=== PATIENT | female | born 1975 | race Caucasian/White ===

== ENCOUNTER → 2018-04-13 06:37 | Outpatient (CLI) | payer OTHER, SELFPAY ==
--- NOTE | 2018-04-13 06:39 | DI.MRI.S_ITS ---
PROCEDURE: MR LUMBAR SPINE WO CON INDICATIONS: 43 year-old woman with left side low back pain. TECHNIQUE: Noncontrast sagittal T1 spin echo and T2 fast echo, sagittal STIR, axial T1 and T2 fast spin echo through the lumbar spine. In cases with scoliosis, additional coronal T2 fast spin echo may be performed. COMPARISON: [facility], , L-SPINE 2-3 VIEWS, 11/25/2009, 9:36. [facility], , PELVIS 1 OR 2 VIEWS, 11/25/2009, 9:36. [facility], , L-SPINE 2-3 VIEWS, 08/19/2017, 15:20. FINDINGS: Image quality: Excellent. Alignment and Curvature: There is normal bony alignment. Bone Marrow: Marrow is of normal overall signal. No acute vertebral body compression fractures. Spinal Cord: Conus medullaris terminates at the L1 level. Visualized cord demonstrates normal signal and size. Paraspinous Soft Tissues: No paravertebral masses. L1-L2: Normal appearance. L2-L3: Preserved disc height. Mild disc desiccation. There is minimal posterior disc bulge. The central canal is patent. No foraminal stenosis. L3-L4: Preserved disc height. Mild disc desiccation. There is posterior disc bulge and small posterior central annular tear. The central canal is patent. No foraminal stenosis. L4-L5: Preserved disc height. Moderate disc desiccation. There is posterior disc bulge and posterior central annular tear. Moderate bilateral facet arthropathy. The central canal is narrowed. No foraminal stenosis. L5-S1: Severe loss of disc height and disc desiccation. There is posterior disc bulge and disc osteophyte complex. Mild bilateral facet arthropathy. The central canal is mildly narrowed. [id number]-[id number] bilateral foraminal stenosis. IMPRESSION: 1. Multilevel degenerative disc disease and facet arthropathy in lumbar spine as described. 2. Mild central canal stenosis at L5-S1. 3. Wevb-rv-hmatyqda bilateral foraminal stenosis at L5-S1. Dictated by: Kayla Melissa M.D. on 04/13/2018 at 8:00 Approved by: Kayla Melissa M.D. on 04/13/2018 at 10:13
== END ==
PROVIDERS: Family Provider Family Medicine; PCP Family Medicine; Referring Provider Family Medicine; Visit Provider Family Medicine
DX: M54.5 Low back pain (principal); M51.36 Other intervertebral disc degeneration, lumbar region; M47.816 Spondylosis without myelopathy or radiculopathy, lumbar region; M48.07 Spinal stenosis, lumbosacral region
CPT/HCPCS: 72148

== ENCOUNTER → 2018-04-24 15:19 | Outpatient (CLI) | payer OTHER, SELFPAY ==
--- NOTE | 2018-04-24 | DI.MG.S_ITS ---
BILATERAL DIGITAL SCREENING MAMMOGRAM 3D/2D WITH CAD: 04/24/2018 CLINICAL: Routine screening. Family history of breast cancer. Comparison is made to exam dated: [facility] [place]. The tissue of both breasts is heterogeneously dense. This may lower the sensitivity of mammography. Current study was also evaluated with a Computer Aided Detection (CAD) system. No significant masses, calcifications, or other findings are seen in either breast. There has been no significant interval change. IMPRESSION: NEGATIVE There is no mammographic evidence of malignancy. A 1 year screening mammogram is recommended. This exam was interpreted at Station ID: [id number]. NOTE: For mammograms, a report in lay terms will be sent to the patient. Approximately 15% of breast malignancies will not be visualized mammographically. In the management of a palpable breast mass, a negative mammogram must not discourage biopsy of a clinically suspicious lesion. Electronically Signed By: Lashae boyle/agustin:04/24/2018 15:52:04 letter sent: Normal Exam ACR BI-RADS Category 1: Negative 3341F
== END ==
PROVIDERS: Family Provider Family Medicine; PCP Family Medicine; Visit Provider Family Medicine
DX: Z12.31 Encounter for screening mammogram for malignant neoplasm of breast (principal); Z80.3 Family history of malignant neoplasm of breast
CPT/HCPCS: 77063; 77067

== ENCOUNTER → 2018-07-29 15:51 | Outpatient (CLI) | payer OTHER, SELFPAY ==
[2018-07-29 18:03] LABS: Thyroid Stimulating Hormone < 0.02 uIU/mL (0.47-4.68)
== END ==
PROVIDERS: PCP Family Medicine; Visit Provider Family Medicine
DX: E03.9 Hypothyroidism, unspecified (principal)
CPT/HCPCS: 36415; 84443

== ENCOUNTER → 2018-11-19 14:59 | Outpatient (CLI) | payer OTHER, SELFPAY ==
[2018-11-19 17:01] LABS: Thyroid Stimulating Hormone 0.07 uIU/mL (0.47-4.68)
== END ==
PROVIDERS: Family Provider Family Medicine; PCP Family Medicine; Visit Provider Family Medicine
DX: E03.9 Hypothyroidism, unspecified (principal)
CPT/HCPCS: 36415; 84443

== ENCOUNTER → 2019-04-28 10:19 | Outpatient (CLI) | payer OTHER, SELFPAY ==
[2019-04-28 12:25] LABS: TSH w/ Reflex to FT4 7.97 uIU/mL (0.47-4.68)
[2019-04-28 12:53] LABS: Free T4, Direct Thyroxine 0.98 ng/dL (0.78-2.19)
== END ==
PROVIDERS: PCP Family Medicine; Visit Provider Family Medicine
DX: E03.9 Hypothyroidism, unspecified (principal)
CPT/HCPCS: 36415; 84439; 84443

== ENCOUNTER → 2019-06-02 10:09 | Outpatient (CLI) | payer OTHER, SELFPAY ==
--- NOTE | 2019-06-02 | DI.US.S_ITS ---
ULTRASOUND OF LEFT BREAST: 06/02/2019 CLINICAL: Focal left breast pain. Comparison is made to exams dated: 06/02/2019 mammogram, 04/24/2018 mammogram, and 03/28/2017 mammogram - [facility]. Real-time ultrasound of the left breast was performed. Raymond scale images of the real-time examination were reviewed. No significant abnormalities were seen sonographically in the left breast. IMPRESSION: BENIGN There is no sonographic evidence of malignancy. There is no abnormality seen in the left breast to correspond with the area of clinical concern, palpable abnormality, and pain, however, recommend clinical followup for continued symptomatology. A 1 year screening mammogram is recommended. This exam was interpreted at Station ID: [id number]. Electronically Signed By: Robbin Busch M.D. aty/:06/02/2019 11:57:29 letter sent: Normal Exam Ultrasound BI-RADS: 2 Benign
--- NOTE | 2019-06-02 10:10 | DI.US.S_ITS ---
ULTRASOUND OF RIGHT BREAST: 06/02/2019 CLINICAL: Palpable right breast lump. Comparison is made to exams dated: 06/02/2019 mammogram, 04/24/2018 mammogram, and 03/28/2017 mammogram - [facility]. Color flow and real-time ultrasound of the right breast were performed. Raymond scale images of the real-time examination were reviewed. There is a 0.4 cm x 0.3 cm x 0.4 cm oval cyst in the right breast at 3 o'clock middle depth 5 cm from the nipple. This oval cyst is anechoic with posterior acoustic enhancement. This correlates to the reported area of pain and with area of clinical concern. Color flow imaging demonstrates that there is no vascularity present. IMPRESSION: BENIGN There is no sonographic evidence of malignancy. The 0.4 cm x 0.3 cm x 0.4 cm oval cyst in the right breast is consistent with a simple cyst and is benign. A 1 year screening mammogram is recommended. Recommend clinical follow up for persistent symptoms. This exam was interpreted at Station ID: [id number]. Electronically Signed By: Robbin chinchilla/:06/02/2019 11:59:47 letter sent: Normal Exam Ultrasound BI-RADS: 2 Benign
--- NOTE | 2019-06-02 10:10 | DI.MG.S_ITS ---
BILATERAL DIGITAL DIAGNOSTIC MAMMOGRAM 3D/2D: 06/02/2019 CLINICAL: Right breast pain and lump. Left breast pain. Comparison is made to exams dated: 04/24/2018 mammogram and 03/28/2017 mammogram - [facility]. The tissue of both breasts is heterogeneously dense. This may lower the sensitivity of mammography. No significant masses, calcifications, or other findings are seen in either breast. IMPRESSION: INCOMPLETE: NEEDS ADDITIONAL IMAGING EVALUATION There is no abnormality seen in the right breast to correspond with the area of clinical concern and pain indicated by square marker at 3 o'clock in the middle depth, however, ultrasound is recommended. There is no abnormality seen in the left breast to correspond with the area of clinical concern and pain indicated by square marker at 9 o'clock in the posterior depth, however, ultrasound is recommended. The recommended breast ultrasound is scheduled to immediately follow this examination. This exam was interpreted at Station ID: [id number]. NOTE: For mammograms, a report in lay terms will be sent to the patient. Approximately 15% of breast malignancies will not be visualized mammographically. In the management of a palpable breast mass, a negative mammogram must not discourage biopsy of a clinically suspicious lesion. Electronically Signed By: Robbin Busch M.D. aty/:06/02/2019 11:01:17 ACR BI-RADS Category 0: Incomplete [id number]
== END ==
PROVIDERS: PCP Family Medicine; Visit Provider Family Medicine
DX: R92.8 Other abnormal and inconclusive findings on diagnostic imaging of breast (principal); N64.4 Mastodynia; N60.01 Solitary cyst of right breast
CPT/HCPCS: 76642; 77066; G0279

== ENCOUNTER → 2019-08-09 09:19 | Outpatient (CLI) | payer OTHER, SELFPAY ==
[2019-08-09 11:05] LABS: Thyroid Stimulating Hormone 3.17 uIU/mL (0.47-4.68)
== END ==
PROVIDERS: PCP Family Medicine; Visit Provider Family Medicine
DX: E03.9 Hypothyroidism, unspecified (principal)
CPT/HCPCS: 36415; 84443

== ENCOUNTER 2019-10-14 15:32 | Outpatient (CLI) | payer OTHER, SELFPAY ==
[2019-10-14] VITALS (8 sets, daily range): BP systolic 106–122; BP diastolic 58–81; PULSE 71–76; RESP 16–18; TEMP 36.5; O2SAT 98–100
--- NOTE | 2019-10-14 15:33 | DI.RAD.S_ITS ---
PROCEDURE: PAIN L/SI FACET INJ/BLK 1STL INDICATIONS: INTERVERTEBRAL DISC DISPLACEMENT FINDINGS: Fluoroscopic spot filming was performed to verify placement of spinal needles at the L4-L5 and L5-S1 level(s), as labeled on the films. Appropriate location(s) of the needle tip(s) was confirmed by injection of iodinated contrast. IMPRESSION: Fluoroscopy for pain management. Dictated by: Kayla Melissa M.D. on 10/14/2019 at 18:57 Approved by: Kayla Melissa M.D. on 10/14/2019 at 18:57
[2019-10-14] MEDS: BETAMETHASONE 30 MG/5 ML MDV 12 MG INJ (16:17)
[2019-10-14] MEDS: IOPAMIDOL 15 ML VIAL 3 ML INJ (16:17)
[2019-10-14] MEDS: LIDOCAINE 1% 20 ML 5 ML INJ (16:17)
[2019-10-14] MEDS: MIDAZOLAM 5 MG/5 ML VIAL IV (16:17)
[2019-10-14] MEDS: BUPIVACAINE 0.5% (PF) VIAL 2 ML INJ (16:17)
--- NOTE | 2019-10-14 16:20 | PC.NURSE ---
ASSISTING PT OFF TABLE AND TRANSPORTING TO POST PROC AREA IN STABLE CONDITION. PASSING RN CARE OF PT OFF TO NATALIE Cheung RN.
--- NOTE | 2019-10-14 16:32 | PC.NURSE ---
1629: Received patient post procedure via WC with Melvina KILLIAN. Awake, alert, and calm. Up out of WC to chair with Stand by assist. VSS upon arrival. Pasquale at side
--- NOTE | 2019-10-22 13:30 | P.PCN_ITS ---
Procedures Date/Time Date of procedure: 10/14/19 Time of procedure: 13:31 General Procedure description: PREOP DIAGNOSIS 1. FACET ARTHROPATHY 2. AXIAL LBP 3. MULTILEVEL DDD POST OP DIAGNOSIS 1. FACET ARTHROPATHY 2. AXIAL LBP 3. MULTILEVEL DDD PROCEDURES 1. FLUORSCOPICALLY GUIDED CONTRAST CONTROLLED FACET JOINT INJECTIONS BILATERAL L4/5, L5/S1 PHYSICIAN: Jones Smart, DO INDICATIONS Yarely is referred by Dr. Yao for treatment of Axial LBP FINDINGS Multilevel Facet Arthropathy with Clinically significant axial LBP DESCRIPTION OF PROCEDURE Fluoroscopically guided, contrast-controlled bilateral L4/5, L5/S1 facet joint injections. Following review of allergy and review of potential side effects and complications, including, but not necessarily limited to, infection, allergic reaction, local tissue breakdown, stroke, temporary or permanent nerve injury, paralysis, and possible , the patient indicated that the patient understood and agreed to proceed. An informed consent document was signed by the patient, witnessed by a nurse, and placed in the patient's chart. Additionally, other treatment options including medications, modalities, and physical therapy were reviewed with the patient. After review of previous anaesthesic history and IV conscious sedation the patient was deemed safe to proceed with todays procedure with IV conscious sedation as ASA class II designation. Safety time-out was performed to confirm patient ID, procedure to be performed and site of procedure. IV sedation was accomplished with a combination of 2mg of Versed and 50mcg of Fentanyl was administered by the RN after DO order, titrated to patient comfort during the course of the procedure while the patient remained responsive to all verbal commands In the prone position, following sterile prep and drape of the lumbar region, the posterior aspect of the L4/5, L5/S1 facet joints were identified fluoroscopically. The skin was anesthetized via a 25-gauge 1.5-inch needle with 1% lidocaine solution into the corresponding facet joints. At this point, a 22- gauge 3.5-inch spinal needle was atraumatically introduced and advanced under fluoroscopic guidance into the corresponding facet joints. Following negative aspiration, injections of approximately 0.2cc of Isovue 200 confirmed interarticular placement without vascular uptake. The identical procedure was then performed at the L4/5, L5/S1 facet joints on the left. Radiological data, including multiple fluoroscopic views of the lumbosacral spine, reveal a spinal needle at the L4/5, L5/S1 facet joints bilaterally. Subsequent views show flow of contrast material both superiorly and inferiorly within the joint space without vascular or intrathecal uptake. At this point, a total of 0.5cc including a mixture of 0.25cc Marcaine and 0.25cc betamethasone was injected without complication into each of the corresponding facet joints. The patient tolerated the procedure well without signs or symptoms of complications prior to transfer to the recovery area continued monitoring without incident. The patient was then transferred to the recovery area where they were observed for an appropriate period of time after the injection. The patient reported a VAS score of 7 prior to the procedure and a post- procedure VAS of 2. Total Fluoroscopy Time: seconds Total Conscious Sedation Time: 24min POST OP INSTRUCTIONS The patient was provided a Pain Log to continue to record their response to the target-specific procedure prior to follow-up visit with their referring physician. Additionally, specific post-injection care instructions and a contact number to our office were provided if concerns arise regarding possible complications associated with the procedure are suspected. Jones Smart, Complications: none
== END 2019-10-14 16:49 | disposition home or self-care (01) ==
LOC: RAD 15:33
PROVIDERS: PCP Family Medicine; Referring Provider Physical Medicine & Rehabilitation; Visit Provider Physical Medicine & Rehabilitation
DX: M47.816 Spondylosis without myelopathy or radiculopathy, lumbar region (principal); M47.817 Spondylosis without myelopathy or radiculopathy, lumbosacral region; M54.5 Low back pain; M51.36 Other intervertebral disc degeneration, lumbar region; M51.37 Other intervertebral disc degeneration, lumbosacral region
CPT/HCPCS: 64493; 64494; 99152; J0702; J2250; J3010

== ENCOUNTER → 2020-01-10 16:04 | Outpatient (CLI) | payer OTHER, SELFPAY ==
--- NOTE | 2020-01-10 16:05 | DI.RAD.S_ITS ---
PROCEDURE: XR SHOULDER LT MIN 2V INDICATIONS: LEFT SHOULDER PAIN TECHNIQUE: 3 views of the shoulder were acquired. COMPARISON: [facility], , CHEST 2 VIEW, 12/11/2012, 6:27. FINDINGS: Bones: No fractures or dislocations. No suspicious bony lesions. Visualized ribs appear intact. Soft tissues: No suspicious soft tissue calcifications. The visualized lung demonstrates an unremarkable appearance. IMPRESSION: No significant plain film abnormality is seen. Dictated by: Ben Gerber M.D. on 01/10/2020 at 15:49 Approved by: Ben Gerber M.D. on 01/10/2020 at 15:50
== END ==
PROVIDERS: PCP Family Medicine; Referring Provider Family Medicine; Visit Provider Family Medicine
DX: M25.512 Pain in left shoulder (principal)
CPT/HCPCS: 73030

== ENCOUNTER → 2020-03-09 15:41 | Outpatient (CLI) | payer OTHER, SELFPAY ==
--- NOTE | 2020-03-09 15:42 | DI.RAD.S_ITS ---
PROCEDURE: XR HAND LT MIN 3V INDICATIONS: left middle finger pain TECHNIQUE: 3 views of the hand(s) acquired. COMPARISON: None. FINDINGS: Bones: No fractures or dislocations. Carpal bones are normally aligned. No suspicious bony lesions. Soft tissues: No suspicious soft tissue calcifications. IMPRESSION: Left hand without acute radiographic abnormalities. Dictated by: Robbin Busch M.D. on 03/09/2020 at 16:14 Approved by: Robbin Busch M.D. on 03/09/2020 at 16:15
== END ==
PROVIDERS: PCP Family Medicine; Referring Provider Physician Assistant; Visit Provider Physician Assistant
DX: M79.645 Pain in left finger(s) (principal)
CPT/HCPCS: 73130

== ENCOUNTER → 2020-04-12 11:24 | Outpatient (CLI) | payer OTHER, SELFPAY ==
[2020-04-12 12:20] LABS: Add Manual Diff / Slide Review NO; Basophils Absolute Auto 0 /uL (0-100); Basophils Percent Auto 0.5 % (0-2); Eosinophils Absolute Auto 100 /uL (0-450); Eosinophils Percent Auto 1.5 % (2-4); Hematocrit 38.9 % (36-46); Lymphocytes Absolute Auto 1400 /uL (1100-4500); Lymphocytes Percent Auto 19.4 % (25-40); Mean Corpuscular HGB Conc 33.4 % (30-36); Mean Corpuscular Hemoglobin 27.9 PG (26-34); Mean Corpuscular Volume 83.5 fL (80-100); Monocytes Absolute Auto 400 /uL (0-900); Monocytes Percent Auto 5.9 % (3-14); Neutrophils Absolute Auto 5200 /uL (1500-7000); Neutrophils Percent Auto 72.7 % (50-75); Platelet Count 233 X10^3/uL (150-400); Red Blood Cell Count 4.66 X10^6/uL (4.0-5.2); Red Cell Distribution Width 14.7 % (11.6-14.8); White Blood Cell Count 7.2 X10^3/uL (4.5-11.0)
[2020-04-12 12:46] LABS: Alanine Aminotransferase 15 IU/L (<35); Albumin 4.6 g/dL (3.5-5.0); Albumin Globulin Ratio 1.4 (1.0-2.8); Alkaline Phosphatase 83 U/L (38-126); Amylase 74 U/L (30-110); Aspartate Aminotransferase 19 IU/L (14-36); Bilirubin Total 0.5 mg/dL (0.2-1.3); Blood Urea Nitrogen 10 mg/dL (7-17); Calcium 10.8 mg/dL (8.4-10.2); Carbon Dioxide 28 mmol/L (22-32); Chloride 102 mmol/L (98-107); Cholesterol 206 mg/dL (140-199); Estimated Glomerular Filt Rate > 60.0 mL/min (>60); Globulin 3.4 g/dL (1.7-4.1); Glucose 114 mg/dL (70-100); HDL Cholesterol 73 mg/dL (40-60); HEMOLYSIS < 15 (0-50); LDL Cholesterol Calculated 100 mg/dL (<100); Lipase 58 U/L (23-300); Potassium 4.6 mmol/L (3.4-5.1); Sodium 137 mmol/L (137-145); Triglycerides 165 mg/dL (35-150)
[2020-04-15 15:08] LABS: H. Pylori Antigen Stool Negative (Negative)
[2020-04-17 17:45] LABS: Calprotectin, Stool < 16 ug/g (0-120)
== END ==
PROVIDERS: PCP Family Medicine; Referring Provider Family Medicine; Visit Provider Family Medicine
DX: R10.11 Right upper quadrant pain (principal); R10.13 Epigastric pain; R11.2 Nausea with vomiting, unspecified; R19.7 Diarrhea, unspecified; R10.9 Unspecified abdominal pain; R11.0 Nausea
CPT/HCPCS: 36415; 80053; 80061; 82150; 83690; 83993; 85025; 87338

== ENCOUNTER → 2020-04-14 08:06 | Outpatient (CLI) | payer OTHER, SELFPAY ==
--- NOTE | 2020-04-14 08:07 | DI.US.S_ITS ---
PROCEDURE: US ABDOMEN COMPLETE INDICATIONS: abdominal pain - evaluate gall bladder and pancreas TECHNIQUE: Real-time scanning was performed of the abdominal and retroperitoneal organs, with image documentation. COMPARISON: [facility], US, ABDOMEN COMPLETE, 11/01/2014, 7:37. FINDINGS: Liver: Liver is normal in size and homogeneous in echotexture. Gallbladder: No findings of gallstones or sludge are seen. The gallbladder wall is not thickened, measuring 3 mm or less. No specific pericholecystic fluid is seen. The sonographic Silveira sign is negative. Biliary ducts: Intrahepatic bile ducts are mildly prominent. Extrahepatic bile duct caliber measures 3 mm. Normal is 6-7 mm or less in diameter, or 10 mm or less post-cholecystectomy. Pancreas: Not well seen, obscured by overlying bowel gas. Spleen: Spleen is normal in size and demonstrates a heterogeneous echotexture. No focal splenic lesions are seen. Kidneys: Kidneys are normal in size and echotexture. Right kidney measures 11.3 cm long; left kidney measures 11 1 cm long. No hydronephrosis or nephrolithiasis. No solid masses. Aorta: Visualized aorta is normal in caliber at less than 3 cm. Iliacs: Proximal common iliac arteries are normal in caliber at less than 2.5 cm. IVC: Intrahepatic inferior vena cava is patent. Miscellaneous: No free abdominal fluid. This study is limited by body habitus. Study is further limited bowel gas. IMPRESSION: The gallbladder demonstrates a normal sonographic appearance. No qi biliary dilatation is seen. The pancreas not well seen, secondary bowel gas. Dictated by: Ben Gerber M.D. on 04/14/2020 at 8:17 Approved by: Ben Gerber M.D. on 04/14/2020 at 8:19
== END ==
PROVIDERS: PCP Family Medicine; Referring Provider Family Medicine; Visit Provider Family Medicine
DX: R10.11 Right upper quadrant pain (principal); R10.13 Epigastric pain; R11.2 Nausea with vomiting, unspecified; R19.7 Diarrhea, unspecified
CPT/HCPCS: 76700

== ENCOUNTER → 2020-07-19 17:31 | Outpatient (CLI) | payer OTHER, SELFPAY ==
--- NOTE | 2020-07-19 17:32 | DI.MG.S_ITS ---
BILATERAL DIGITAL SCREENING MAMMOGRAM 3D/2D WITH CAD: 07/19/2020 CLINICAL: Routine screening. Family history of breast cancer. Comparison is made to exams dated: 06/02/2019 mammogram, 04/24/2018 mammogram, and 03/28/2017 mammogram - [facility]. The tissue of both breasts is heterogeneously dense. This may lower the sensitivity of mammography. Current study was also evaluated with a Computer Aided Detection (CAD) system. No significant masses, calcifications, or other findings are seen in either breast. There has been no significant interval change. IMPRESSION: NEGATIVE There is no mammographic evidence of malignancy. A 1 year screening mammogram is recommended. This exam was interpreted at Station ID: [id number]. NOTE: For mammograms, a report in lay terms will be sent to the patient. Approximately 15% of breast malignancies will not be visualized mammographically. In the management of a palpable breast mass, a negative mammogram must not discourage biopsy of a clinically suspicious lesion. Electronically Signed By: Lashae boyle/agustin:07/20/2020 08:32:55 letter sent: Normal Exam ACR BI-RADS Category 1: Negative 3341F
== END ==
PROVIDERS: PCP Family Medicine; Referring Provider Family Medicine; Visit Provider Family Medicine
DX: Z12.31 Encounter for screening mammogram for malignant neoplasm of breast (principal); Z80.3 Family history of malignant neoplasm of breast
CPT/HCPCS: 77063; 77067

== ENCOUNTER → 2020-08-17 07:32 | Outpatient (CLI) | payer OTHER, SELFPAY ==
--- NOTE | 2020-08-17 | DI.NM.S_ITS ---
PROCEDURE: NM HIDA WITH CCK PHARMACEUTICAL: 5.2 mCi Tc-99m mebrofenin IV; 2.0 mcg CCK IV. INDICATIONS: Epigastric pain TECHNIQUE: Following intravenous administration of Tc-99m mebrofenin, sequential anterior abdominal images were obtained. To evaluate the contractile response of the gallbladder in response to Cholecystokinin (CCK), sincalide (0.02 ?g/kg) was administered by slow intravenous infusion approximately 60 minutes after the administration of the radiopharmaceutical. Sequential imaging was continued for 30 minutes after the start of CCK infusion. Gallbladder ejection fraction was calculated. COMPARISON: [facility], , US ABDOMEN COMPLETE, 04/14/2020, 8:16. FINDINGS: Biliary scan: There is normal tracer uptake and excretion by the liver. There is normal visualization of the intrahepatic ducts, common bile duct, and gallbladder. There is normal tracer transit into the duodenum. CCK stimulation: There is normal contractile response of the gallbladder to CCK infusion. The calculated gallbladder ejection fraction is 95%; normal values are above 35%. IMPRESSION: 1. Normal filling of gallbladder. No evidence for acute cholecystitis. 2. Normal contractile response of gallbladder to CCK stimulation. Dictated by: Kayla Melissa M.D. on 08/17/2020 at 9:38 Approved by: Kayla Melissa M.D. on 08/17/2020 at 9:39
== END ==
PROVIDERS: PCP Family Medicine; Referring Provider Family Medicine; Visit Provider Internal Medicine Gastroenterology
DX: R10.13 Epigastric pain (principal)
CPT/HCPCS: 78227; A9537; J2805

== ENCOUNTER 2020-09-06 19:18 | Emergency (ER) | payer OTHER, SELFPAY ==
[2020-09-06] VITALS (9 sets, daily range): BP systolic 118–133; BP diastolic 61–87; PULSE 80–93; RESP 18–20; TEMP 37; O2SAT 96–99
--- NOTE | 2020-09-06 19:27 | DI.RAD.S_ITS ---
PROCEDURE: XR CHEST 1V INDICATIONS: chest pain TECHNIQUE: One view of the chest was acquired. COMPARISON: [facility], , CHEST 2 VIEW, 12/11/2012, 6:27. FINDINGS: Surgical changes and devices: None. Lungs and pleura: Right basilar opacity may be infiltrate or atelectasis. No pleural effusions or pneumothorax. Mediastinum: Mediastinal contours appear normal. Heart size is normal. Bones and chest wall: No suspicious bony lesions. Overlying soft tissues appear unremarkable. IMPRESSION: Right basilar pneumonia versus atelectasis. Dictated by: Kayla Melissa M.D. on 09/06/2020 at 19:54 Approved by: Kayla Melissa M.D. on 09/06/2020 at 19:55
[2020-09-06 19:55] LABS: Add Manual Diff / Slide Review NO; Basophils Absolute Auto 100 /uL (0-100); Basophils Percent Auto 1.3 % (0-2); Eosinophils Absolute Auto 200 /uL (0-450); Hemoglobin 12.1 g/dL (12.0-16.0); Lymphocytes Absolute Auto 1700 /uL (1100-4500); Lymphocytes Percent Auto 22.2 % (25-40); Mean Corpuscular HGB Conc 33.6 % (30-36); Mean Corpuscular Hemoglobin 27.4 PG (26-34); Mean Corpuscular Volume 81.5 fL (80-100); Monocytes Absolute Auto 500 /uL (0-900); Monocytes Percent Auto 6.5 % (3-14); Neutrophils Absolute Auto 5100 /uL (1500-7000); Platelet Count 208 X10^3/uL (150-400); Red Blood Cell Count 4.42 X10^6/uL (4.0-5.2); Red Cell Distribution Width 14.8 % (11.6-14.8); White Blood Cell Count 7.7 X10^3/uL (4.5-11.0)
[2020-09-06 20:03] LABS: INR 0.9 (0.9-1.3); Prothrombin Time 10.6 SECONDS (10.1-12.7)
[2020-09-06 20:06] LABS: PTT Partial Thromboplastin Tim 29 SECONDS (26.4-36.2)
[2020-09-06 20:08] LABS: Alanine Aminotransferase 17 IU/L (<35); Albumin 4.2 g/dL (3.5-5.0); Albumin Globulin Ratio 1.3 (1.0-2.8); Alkaline Phosphatase 89 U/L (38-126); Aspartate Aminotransferase 22 IU/L (14-36); BUN Creatinine Ratio 16.5 (6-22); Bilirubin Total 0.1 mg/dL (0.2-1.3); Blood Urea Nitrogen 13 mg/dL (7-17); Calcium 9.9 mg/dL (8.4-10.2); Carbon Dioxide 29 mmol/L (22-32); Chloride 107 mmol/L (98-107); Creatine Kinase 49 U/L (30-135); Estimated Glomerular Filt Rate > 60.0 mL/min (>60); Globulin 3.2 g/dL (1.7-4.1); Glucose 100 mg/dL (70-100); HEMOLYSIS < 15 (0-50); Lipase 72 U/L (23-300); Sodium 139 mmol/L (137-145); Total Protein 7.4 g/dL (6.3-8.2)
[2020-09-06 20:19] LABS: Troponin I < 0.012 ng/mL (0.01-0.034)
[2020-09-06 21:40] LABS: D Dimer 289 ng/mL (<230)
--- NOTE | 2020-09-06 22:22 | DI.RAD.S_ITS ---
PROCEDURE: XR SHOULDER LT MIN 2V INDICATIONS: Pain TECHNIQUE: 2 views of the shoulder were acquired. COMPARISON: [facility], CR, XR SHOULDER LT MIN 2V, 01/10/2020, 16:00. FINDINGS: Bones: No fractures or dislocations. Widening of the acromioclavicular joint to 14 millimeters. No suspicious bony lesions. Visualized ribs appear intact. Soft tissues: No suspicious soft tissue calcifications. IMPRESSION: Type 1 separation left acromioclavicular joint. Dictated by: Peggy Ocampo MD, PhD on 09/07/2020 at 9:11 Approved by: Peggy Ocampo MD, PhD on 09/07/2020 at 9:12
--- NOTE | 2020-09-06 22:22 | DI.CT.S_ITS ---
PROCEDURE: CT ANGIO CHEST PE PROTOCOL INDICATIONS: Pain TECHNIQUE: After the administration of intravenous contrast, 2 mm thick sections acquired from the pulmonary apices to the posterior costophrenic angles. 3-dimensional maximum intensity projection (MIP) coronal and sagittal reformats were then acquired through the thorax. For radiation dose reduction, the following was used: automated exposure control, adjustment of mA and/or kV according to patient size. COMPARISON: None. FINDINGS: Image quality: Diagnostic sensitivity of study is diminished secondary to suboptimal contrast opacification of the segmental and subsegmental pulmonary arteries. Pulmonary arteries: Pulmonary arteries are normal in size, and demonstrate no intraluminal filling defects to suggest central pulmonary embolism. Lungs and pleura: Lungs are clear. No pleural effusions or pneumothorax. Central and peripheral airways are patent. Mediastinum: Heart size is normal, without pericardial effusion. RV/LV ratio is normal. No mediastinal or hilar adenopathy. Thoracic aorta is normal in caliber and enhancement. Esophagus is normal in caliber, without hiatal hernia. Bones and chest wall: No suspicious bony lesions. Ribs and thoracic spine appear intact throughout. Spine degenerative disc disease and facet arthropathy. Thyroid gland is within normal limits where visualized No axillary or supraclavicular adenopathy. Abdomen: Visualized upper abdominal solid organs appear normal in the early arterial phase of enhancement. IMPRESSION: 1. No large central pulmonary embolus. Small pulmonary emboli involving the segmental or subsegmental pulmonary arteries is not excluded by this study. 2. No lung consolidation or pleural effusions. Dictated by: Peggy Ocampo MD, PhD on 09/07/2020 at 7:11 Approved by: Peggy Ocampo MD, PhD on 09/07/2020 at 7:14
--- NOTE | 2020-09-06 22:23 | ED_ITS ---
HPI - Chest Pain General Chief Complaint: Chest Pain Stated Complaint: chest pain Time Seen by Provider: 09/06/20 22:07 Source: patient and family Mode of arrival: Ambulatory History of Present Illness HPI narrative: Patient here with . Complains of reproducible left shoulder pain as well as sternal chest pain. No numbness tingling weakness. No syncope. Patient is postop 5 weeks left shoulder arthroscopic surgery to clean out the joint. No rotator cuff repair. Has been doing well. Regained her range of motion. Last Friday she flew to [facility]. No complaints. On the flight back on Friday while on the plane without any injury or stress. The experience left reproducible shoulder pain with movement. On the ride home from the airport to experience chest tightness that was reproducible on palpation. No dyspnea. No syncope. No prior history of DVT or PEs. No recent illness cough cold congestion fever chills or nausea or vomiting. The following 2 days Friday and Friday continued with reproducible left shoulder pain as well as substernal chest pain that is reproducible. Denies any coronary artery disease. No heart problems. Pain 3/10 at this time. Is reproducible on palpation Related Data Previous Rx's Medication Instructions Recorded hydrocortisone [Proctosol HC] 2.5 % DE TIDP #30 gm 04/16/16 sumatriptan succinate 100 mg tablet 100 mg PO .COMPLEX #14 tab 03/19/19 bupropion HCl 200 mg tablet,12 hr 200 mg PO DAILY #30 each 01/10/20 sustained-release lidocaine 5 % topical patch 1 patch TOP DAILY #15 each 01/10/20 levothyroxine 125 mcg tablet 125 mcg PO QDAY #90 tab 09/06/20 Allergies Allergy/AdvReac Type Severity Reaction Status Date / Time adhesive [ADHESIVE] Allergy Mild local rash Verified 04/12/20 10:35 hydrocodone [HYDROCODONE] Allergy Mild itching Verified 04/12/20 10:35 oxycodone [OXYCODONE] Allergy Mild itching Verified 04/12/20 10:35 Review of Systems Review of Systems Narrative: GENERAL: Denies chills, fatigue, malaise, fever, sweats. HEENT: Denies sinus pain, ear pain, sore throat RESPIRATORY: Denies dyspnea, cough CARDIOVASCULAR: Complaining chest pain, denies palpitations GASTROINTESTINAL: Denies nausea, vomiting, abdominal pain : Denies dysuria, frequency, hematuria MUSCULOSKELETAL: Complaining muscle or bony pain SKIN: Denies rash, skin lesions NEUROLOGIC: Denies weakness, numbness ROS Unobtainable: All systems reviewed & are unremarkable except as noted in HPI and below Patient History Medical History Abnormal Pap smear of cervix (1993) Acne Ankle pain (2014) Chicken pox Chronic back pain (2008) Depression (2008) Epigastric pain determined by examination Foot pain (2014) Hayfever (1999) Hemorrhoids (2008) History of heavy periods (1987) HPV (human papilloma virus) infection (1998) Hypothyroidism (2001) IBS (irritable bowel syndrome) (1999) Migraines (1989) Nausea & vomiting Ovarian cyst (1999) Painful menstrual periods (1987) Plantar warts Right upper quadrant pain Shoulder pain (2005) Tubal , rupture of (03/18/10) Urinary incontinence (2013) Surgical History Anesthesia complication History of hysterosalpingogram (01/11/13) History of loop electrical excision procedure (LEEP) (1999) History of shoulder surgery (2006) History of shoulder surgery (2007) History of shoulder surgery (2008) History of unilateral salpingectomy (03/18/10) Status post dilation and curettage (03/20/12) Status post tubal ligation (01/10/14) Status post vaginal hysterectomy (10/23/15) Family History Brother Age: 38 Diverticulitis PTSD (post-traumatic stress disorder) Father Age: 68 Hypertension High cholesterol Grandfather Hypertension Heart attack Diabetes mellitus Mother Age: 66 Diverticulitis Breast lump Diabetes mellitus Grandfather Stroke Dementia Parkinson's disease Grandmother Kidney failure Diabetes mellitus Grandmother No problems noted. Sister Breast lump Diabetes mellitus Sister No problems noted. Social History marital status: Smoking Status: Never smoker alcohol intake: current substance use type: does not use Smoking Status: Never smoker Exam Narrative Exam Narrative: GENERAL: in no distress, not toxic not dyspneic HEAD: Normocephalic. EYES: Pupils equal round No scleral icterus. No injection no discharge ENT: Mucous membranes moist. NECK: Trachea midline. CARDIOVASCULAR: Regular rate and rhythm without murmurs, reproducible sternal tenderness on palpation. No rash. No pain with deep breath RESPIRATORY: Clear to auscultation. Breath sounds equal bilaterally. No wheezes, rales, or rhonchi. GASTROINTESTINAL: Abdomen soft, non-tender no right upper quadrant tenderness EXTREMITIES: No gross deformities. 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 NEURO: AOx4. SKIN: Warm and dry PSYCH: Not anxious, is cooperative Initial Vital Signs Initial Vital Signs: Vital Signs Temperature 98.6 F 09/06/20 19:21 Pulse Rate 90 09/06/20 19:21 Respiratory Rate 20 09/06/20 19:21 Blood Pressure 121/87 09/06/20 19:21 Pulse Oximetry 99 09/06/20 19:21 Course Course Course Narrative: No new issues during course of stay. Orders Ordered: ED Orders 09/06/20 19:27 XR chest 1V Stat EKG-12 Lead Stat 09/06/20 19:46 Complete Blood Count AUTO DIFF Stat Comprehensive Metabolic Panel Stat Lipase Stat Partial Thromboplastin Time Stat Prothrombin Time INR Stat Troponin & CK Cardiac Panel Stat 09/06/20 19:50 DD [D Dimer] Stat 09/06/20 22:22 CT angio chest PE protocol Stat XR shoulder LT min 2V Stat Discontinued Medications Sodium Chloride (Normal Saline 0.9%) 500 mls @ 1,000 mls/hr IV BOLUS ONE Stop: 09/06/20 22:51 Last Infusion: 09/06/20 23:21 Dose: 0 mls/hr Documented by: Admin: 09/06/20 22:34 Dose: 1,000 mls/hr Documented by: BLAKE Reevaluation(s) Reevaluation #1: Reviewed with patient has been results. They agree with discharge home and follow-up with her surgeon. Time: 00:33 Vital Signs Vital signs: Vital Signs - 8 hr 09/06/20 19:21 09/06/20 21:26 09/06/20 21:30 Temperature 98.6 F Pulse Rate 90 90 89 Respiratory Rate 20 Blood Pressure 121/87 120/76 Pulse Oximetry 99 97 96 09/06/20 21:55 09/06/20 22:02 09/06/20 22:30 Temperature Pulse Rate 93 H Respiratory Rate Blood Pressure 133/79 128/76 Pulse Oximetry 98 09/06/20 23:30 09/06/20 23:48 09/06/20 23:57 Temperature Pulse Rate 83 80 Respiratory Rate 18 Blood Pressure 118/61 133/76 Pulse Oximetry 98 99 09/07/20 00:00 09/07/20 00:30 Temperature Pulse Rate 86 Respiratory Rate Blood Pressure 123/62 Pulse Oximetry 95 98 MDM - Chest Pain Differential Diagnosis Differential diagnosis: Likely pneumothorax, stable angina, unstable angina pectoris, costochondritis, chest pain and other (Pleurisy/pneumonia/pulmonary embolism) Lab Data Attestation: I reviewed the patient's lab results. Result diagrams: 09/06/20 19:46 09/06/20 19:46 Labs: Lab Results 09/06/20 09/06/20 09/06/20 Range/Units 19:46 19:46 19:46 WBC 7.7 (4.5-11.0) X10^3/uL RBC 4.42 (4.0-5.2) X10^6/uL Hgb 12.1 (12.0-16.0) g/dL Hct 36.0 (36-46) % MCV 81.5 (80-100) fL MCH 27.4 (26-34) PG MCHC 33.6 (30-36) % RDW 14.8 (11.6-14.8) % Plt Count 208 (150-400) X10^3/uL Neut % (Auto) 67.0 (50-75) % Lymph % (Auto) 22.2 L (25-40) % [place] % (Auto) 6.5 (3-14) % Eos % (Auto) 3.0 (2-4) % Baso % (Auto) 1.3 (0-2) % Neut # (Auto) 5100 (2975-6059) /uL Lymph # (Auto) 1700 (1201-4532) /uL [place] # (Auto) 500 (0-900) /uL Eos # (Auto) 200 (0-450) /uL Baso # (Auto) 100 (0-100) /uL PT 10.6 (10.1-12.7) SECONDS INR 0.9 (0.9-1.3) APTT 29 (26.4-36.2) SECONDS D-Dimer (<230) ng/mL Sodium 139 (137-145) mmol/L Potassium 4.0 (3.4-5.1) mmol/L Chloride 107 (98-107) mmol/L Carbon Dioxide 29 (22-32) mmol/L BUN 13 (7-17) mg/dL Creatinine 0.79 (0.52-1.04) mg/dL Estimated GFR > 60.0 (>60) mL/min BUN/Creatinine Ratio 16.5 (6-22) Glucose 100 (70-100) mg/dL Calcium 9.9 (8.4-10.2) mg/dL Total Bilirubin 0.1 L (0.2-1.3) mg/dL AST 22 (14-36) IU/L ALT 17 (<35) IU/L Alkaline Phosphatase 89 (38-126) U/L Total Creatine Kinase 49 (30-135) U/L CK-MB (CK-2) TNP CK-MB (CK-2) Rel Index TNP Troponin I < 0.012 (0.01-0.034) ng/mL Total Protein 7.4 (6.3-8.2) g/dL Albumin 4.2 (3.5-5.0) g/dL Globulin 3.2 (1.7-4.1) g/dL Albumin/Globulin Ratio 1.3 (1.0-2.8) Lipase 72 (23-300) U/L 09/06/20 Range/Units 19:50 WBC (4.5-11.0) X10^3/uL RBC (4.0-5.2) X10^6/uL Hgb (12.0-16.0) g/dL Hct (36-46) % MCV (80-100) fL MCH (26-34) PG MCHC (30-36) % RDW (11.6-14.8) % Plt Count (150-400) X10^3/uL Neut % (Auto) (50-75) % Lymph % (Auto) (25-40) % [place] % (Auto) (3-14) % Eos % (Auto) (2-4) % Baso % (Auto) (0-2) % Neut # (Auto) (8194-4772) /uL Lymph # (Auto) (0960-6917) /uL [place] # (Auto) (0-900) /uL Eos # (Auto) (0-450) /uL Baso # (Auto) (0-100) /uL PT (10.1-12.7) SECONDS INR (0.9-1.3) APTT (26.4-36.2) SECONDS D-Dimer 289 H (<230) ng/mL Sodium (137-145) mmol/L Potassium (3.4-5.1) mmol/L Chloride (98-107) mmol/L Carbon Dioxide (22-32) mmol/L BUN (7-17) mg/dL Creatinine (0.52-1.04) mg/dL Estimated GFR (>60) mL/min BUN/Creatinine Ratio (6-22) Glucose (70-100) mg/dL Calcium (8.4-10.2) mg/dL Total Bilirubin (0.2-1.3) mg/dL AST (14-36) IU/L ALT (<35) IU/L Alkaline Phosphatase (38-126) U/L Total Creatine Kinase (30-135) U/L CK-MB (CK-2) CK-MB (CK-2) Rel Index Troponin I (0.01-0.034) ng/mL Total Protein (6.3-8.2) g/dL Albumin (3.5-5.0) g/dL Globulin (1.7-4.1) g/dL Albumin/Globulin Ratio (1.0-2.8) Lipase (23-300) U/L Imaging Data Chest x-ray: Radiologist's Impression: [address] [id number] ReportSigned Patient: Yarely Bansal [facility]#: [id number]: 1975Acct:[id number]/Sex: 45 / FDate of Service: 09/06/20Loc: EDAccession Number: [id number] Procedure: XR chest 1V Ordering Provider: Lew Gonzalez MD PROCEDURE: XR CHEST 1V INDICATIONS: chest pain TECHNIQUE: One view of the chest was acquired. COMPARISON: [facility], CHEST 2 VIEW, 12/11/2012, 6:27. FINDINGS: Surgical changes and devices: None. Lungs and pleura: Right basilar opacity may be infiltrate or atelectasis. No pleural effusions or pneumothorax. Mediastinum: Mediastinal contours appear normal. Heart size is normal. Bones and chest wall: No suspicious bony lesions. Overlying soft tissues appear unremarkable. IMPRESSION: Right basilar pneumonia versus atelectasis. Dictated by: Kayla Melissa M.D. on 09/06/2020 at 19:54 Approved by: Kayla Melissa M.D. on 09/06/2020 at 19:55 CT scan - chest: Radiologist's Impression: No central or segmental pulmonary embolus or other acute findings. Extremity x-ray #1: Radiologist's Impression: X-ray left shoulder impression widening of the AC joint space may indicate ligamentous injury. The AC joint is widened measuring up to 1.4 cm. ECG Data Attestation: I personally reviewed and interpreted this ECG as follows: Interpretation: Normal sinus rhythm normal EKG rate 83, no ST elevation depression MDM Narrative Medical decision making narrative: Appropriate for discharge home. No repeat heart enzymes or EKG. This is reproducible pectoral muscle pain on palpation. Likely extension from the left AC joint disruption. Discharge Plan Departure Patient Disposition: Home Clinical Impression: Strain of other muscles, fascia and tendons at shoulder and upper arm level, left arm, initial encounter Instructions: DI for Shoulder Pain Activity Restrictions/Additional Instructions: May use your home sling for left shoulder for comfort. Call your orthopedic surgeon tomorrow, Dr. Chisholm, for office recheck for today's visit and findings. Return if worse or if any questions or concerns. Prescriptions: No Action sumatriptan succinate [Imitrex] 100 mg tablet 100 mg PO .COMPLEX Qty: 14 RF: 3 lidocaine 5 % adhesive patch,medicated 1 patch TOP DAILY Qty: 15 RF: 2 bupropion HCl 200 mg tablet sustained-release 12 hr 200 mg PO DAILY Qty: 30 RF: 11 hydrocortisone [Proctosol HC] 2.5 % cream with perineal applicator 2.5 % DE TIDP Qty: 30 RF: 3 levothyroxine 125 mcg tablet 125 mcg PO QDAY Qty: 90 RF: 0 Referrals: Omar Yao MD [Primary Care Provider] -
[2020-09-06] MEDS: SODIUM CHLORIDE 0.9% 500 ML 1000 ML IV (22:34)
[2020-09-07] VITALS: BP 123/62; PULSE 86; O2SAT 95
[2020-09-07 00:30] VITALS: O2SAT 98
== END 2020-09-07 00:39 | disposition home or self-care (01) ==
PROVIDERS: Emergency Provider Emergency Medicine; PCP Family Medicine
DX: S46.812A Strain of other muscles, fascia and tendons at shoulder and upper arm level, left arm, initial encounter (principal); R07.9 Chest pain, unspecified
CPT/HCPCS: 36415; 71045; 71275; 73030; 80053; 82550; 83690; 84484; 85025; 85379; 85610; 85730; 93005; 96360; 99283; 99284; Q9967

== ENCOUNTER → 2021-03-30 13:47 | Outpatient (CLI) | payer OTHER, SELFPAY ==
[2021-03-30 15:31] LABS: Thyroid Stimulating Hormone 13.8 uIU/mL (0.47-4.68)
== END ==
PROVIDERS: PCP Family Medicine; Referring Provider Family Medicine; Visit Provider Family Medicine
DX: E03.9 Hypothyroidism, unspecified (principal)
CPT/HCPCS: 36415; 84443

== ENCOUNTER → 2022-02-01 10:20 | Outpatient (CLI) | payer OTHER, SELFPAY ==
[2022-02-01 11:18] LABS: Blood Urea Nitrogen 16 mg/dL (7-17); Carbon Dioxide 25 mmol/L (22-32); Chloride 107 mmol/L (98-107); Cholesterol 195 mg/dL (140-199); Estimated Glomerular Filt Rate > 60 mL/min (>60); Glucose 92 mg/dL (70-100); HDL Cholesterol 58 mg/dL (40-60); HEMOLYSIS < 15 (0-50); LDL Cholesterol Calculated 123 mg/dL (<100); Sodium 140 mmol/L (137-145); Triglycerides 70 mg/dL (35-150)
[2022-02-01 11:46] LABS: TSH w/ Reflex to FT4 5.43 uIU/mL (0.47-4.68)
[2022-02-01 12:15] LABS: Free T4, Direct Thyroxine 1.26 ng/dL (0.78-2.19)
== END ==
PROVIDERS: PCP Family Medicine; Referring Provider Family Medicine; Visit Provider Family Medicine
DX: E03.9 Hypothyroidism, unspecified (principal)
CPT/HCPCS: 36415; 80048; 80061; 84439; 84443

== ENCOUNTER → 2022-02-16 08:24 | Outpatient (CLI) | payer OTHER, SELFPAY ==
--- NOTE | 2022-02-16 08:26 | DI.MG.S_ITS ---
BILATERAL DIGITAL SCREENING MAMMOGRAM 3D/2D WITH CAD: 02/16/2022 CLINICAL: Routine screening. Family history of breast cancer. Comparison is made to exams dated: 07/19/2020 mammogram and 04/24/2018 mammogram - [facility]. The tissue of both breasts is heterogeneously dense. This may lower the sensitivity of mammography. Current study was also evaluated with a Computer Aided Detection (CAD) system. No significant masses, calcifications, or other findings are seen in either breast. There has been no significant interval change. IMPRESSION: NEGATIVE There is no mammographic evidence of malignancy. A 1 year screening mammogram is recommended. Based on the Tyrer Cuzick model (a risk assessment model) the patient's lifetime risk is 14.3% and her 10 year risk is 2.7%. According to the ACR, ACS, and NCCN guidelines, an annual breast MRI exam along with mammogram is recommended if the patient's lifetime risk is 20% or greater. This exam was interpreted at Station ID: [id number]. NOTE: For mammograms, a report in lay terms will be sent to the patient. Approximately 15% of breast malignancies will not be visualized mammographically. In the management of a palpable breast mass, a negative mammogram must not discourage biopsy of a clinically suspicious lesion. Electronically Signed By: Kareem ospina/agustin:02/18/2022 09:12:12 letter sent: Normal Exam ACR BI-RADS Category 1: Negative [id number]
== END ==
PROVIDERS: PCP Family Medicine; Referring Provider Family Medicine; Visit Provider Family Medicine
DX: Z12.31 Encounter for screening mammogram for malignant neoplasm of breast (principal); Z80.3 Family history of malignant neoplasm of breast
CPT/HCPCS: 77063; 77067

== ENCOUNTER → 2022-07-18 11:01 | Outpatient (CLI) | payer OTHER, SELFPAY ==
--- NOTE | 2022-07-18 11:03 | DI.RAD.S_ITS ---
PROCEDURE: XR HIP W PEL IF DONE SMOOTH MIN 4V INDICATIONS: Left hip pain with sensation of going out of the socket TECHNIQUE: AP pelvis with lateral view(s) of the bilateral hip(s). COMPARISON: [facility], , HIP 2V RIGHT, 11/18/2014, 10:14. FINDINGS: Bones: No fractures or dislocations. Pelvic ring appears intact. There may be slight progressed sclerosis at both sacroiliac joints. No suspicious bony lesions. Soft tissues: The visualized bowel gas pattern is normal. No suspicious soft tissue calcifications. IMPRESSION: 1. Normal hips. 2. Mild bilateral SI joint degeneration. Dictated by: Savanah Sadler M.D. on 07/18/2022 at 14:04 Approved by: Savanah Sadler M.D. on 07/18/2022 at 14:05
--- NOTE | 2022-07-18 11:03 | DI.RAD.S_ITS ---
PROCEDURE: XR KNEE RT 3V INDICATIONS: Bilateral knee pain L > R TECHNIQUE: 3 views of the knee were acquired. COMPARISON: None. FINDINGS: Bones: No fractures or dislocations minor medial compartment joint space loss.. No suspicious bony lesions. Soft tissues: No joint effusion. No suspicious soft tissue calcifications. IMPRESSION: Minor medial compartment joint space loss. Otherwise normal right knee. Dictated by: Savanah Sadler M.D. on 07/18/2022 at 14:01 Approved by: Savanah Sadler M.D. on 07/18/2022 at 14:02
--- NOTE | 2022-07-18 11:03 | DI.RAD.S_ITS ---
PROCEDURE: XR KNEE LT 3V INDICATIONS: bilateral knee pain R > L TECHNIQUE: 3 views of the knee were acquired. COMPARISON: None. FINDINGS: Bones: No fractures or dislocations. Mild medial compartment joint space loss. No suspicious bony lesions. Soft tissues: No joint effusion. No suspicious soft tissue calcifications. IMPRESSION: Mild medial compartment joint space loss. Otherwise normal left knee. Dictated by: Savanah Sadler M.D. on 07/18/2022 at 14:02 Approved by: Savanah Sadler M.D. on 07/18/2022 at 14:02
--- NOTE | 2022-07-18 11:03 | DI.RAD.S_ITS ---
PROCEDURE: XR LUMBAR SPINE 2-3V INDICATIONS: Low back pain seems worse TECHNIQUE: 3 views of the lumbar spine were acquired. COMPARISON: [facility], , -SPINE 2-3 VIEWS, 08/19/2017, 15:20. FINDINGS: Bones: 5 [id number] vertebrae are present. There is normal bony alignment. There is severe disc height loss at L5-S1 which is likely progressed since the prior study with near complete loss of disc space. No vertebral body compression fractures. No suspicious bony lesions. Soft tissues: Overlying bowel gas pattern is normal. No suspicious soft tissue calcifications. IMPRESSION: Progressive disc degeneration at L5-S1. Dictated by: Savanah Sadler M.D. on 07/18/2022 at 13:59 Approved by: Savanah Sadler M.D. on 07/18/2022 at 14:01
== END ==
PROVIDERS: PCP Family Medicine; Referring Provider Physician Assistant; Visit Provider Physician Assistant
DX: M51.37 Other intervertebral disc degeneration, lumbosacral region (principal); M46.1 Sacroiliitis, not elsewhere classified; M25.552 Pain in left hip; M25.561 Pain in right knee; M25.562 Pain in left knee; M46.96 Unspecified inflammatory spondylopathy, lumbar region; M48.00 Spinal stenosis, site unspecified; M51.36 Other intervertebral disc degeneration, lumbar region; M54.50 Low back pain, unspecified
CPT/HCPCS: 72100; 73522; 73562

== ENCOUNTER → 2023-09-19 08:44 | Outpatient (CLI) | payer OTHER, SELFPAY ==
[2023-09-19 09:27] LABS: Add Manual Diff / Slide Review NO; Basophils Absolute Auto 0 /uL (0-100); Basophils Percent Auto 0.7 % (0-2); Eosinophils Absolute Auto 100 /uL (0-450); Eosinophils Percent Auto 2.4 % (2-4); Hematocrit 37.4 % (36-46); Hemoglobin 12.4 g/dL (12.0-16.0); Lymphocytes Absolute Auto 1200 /uL (1100-4500); Lymphocytes Percent Auto 21.5 % (25-40); Mean Corpuscular Hemoglobin 27.2 PG (26-34); Mean Corpuscular Volume 82.4 fL (80-100); Monocytes Absolute Auto 300 /uL (0-900); Monocytes Percent Auto 4.8 % (3-14); Neutrophils Absolute Auto 4100 /uL (1500-7000); Neutrophils Percent Auto 70.6 % (50-75); Platelet Count 222 X10^3/uL (150-400); Red Blood Cell Count 4.54 X10^6/uL (4.0-5.2); White Blood Cell Count 5.8 X10^3/uL (4.5-11.0)
[2023-09-19 09:50] LABS: Alanine Aminotransferase 18 IU/L (<35); Albumin 4.1 g/dL (3.5-5.0); Albumin Globulin Ratio 1.4 (1.0-2.8); Alkaline Phosphatase 69 U/L (38-126); Aspartate Aminotransferase 20 IU/L (14-36); BUN Creatinine Ratio 20.3 (6-22); Bilirubin Total 0.5 mg/dL (0.2-1.3); Blood Urea Nitrogen 16 mg/dL (7-17); Calcium 9.7 mg/dL (8.4-10.2); Carbon Dioxide 25 mmol/L (22-32); Chloride 105 mmol/L (98-107); Cholesterol 187 mg/dL (140-199); Estimated Glomerular Filt Rate > 60 mL/min (>60); Glucose 99 mg/dL (70-100); HDL Cholesterol 52 mg/dL (40-60); HEMOLYSIS < 15 (0-50); LDL Cholesterol Calculated 98 mg/dL (<100); Potassium 4.3 mmol/L (3.4-5.1); Sodium 138 mmol/L (137-145); Total Protein 7.1 g/dL (6.3-8.2); Triglycerides 184 mg/dL (35-150)
[2023-09-19 10:22] LABS: TSH w/ Reflex to FT4 3.63 uIU/mL (0.47-4.68)
== END ==
PROVIDERS: PCP Family Medicine; Referring Provider Family Medicine; Visit Provider Family Medicine
DX: Z00.00 Encounter for general adult medical examination without abnormal findings (principal); E03.9 Hypothyroidism, unspecified; K76.0 Fatty (change of) liver, not elsewhere classified; F41.9 Anxiety disorder, unspecified
CPT/HCPCS: 36415; 80053; 80061; 84443; 85025

== ENCOUNTER 2023-10-01 12:31 | Day surgery (SDC) | payer OTHER, SELFPAY ==
--- NOTE | 2023-10-01 | PATH_ITS ---
[facility] Accession Number: [id number] No. of containers..03 Tissue . 01 Material submitted: . PART A: colon - RIGHT COLON BIOPSIES PART B: colon - LEFT COLON BIOPSIES PART C: ileum - TI BIOPSY . 01 Diagnosis: A. RIGHT COLON, BIOPSIES: Colonic mucosa with no diagnostic abnormality. Negative for active, chronic, and microscopic colitis. Negative for dysplasia and malignancy. . B. LEFT COLON, BIOPSIES: Colonic mucosa with no diagnostic abnormality. Negative for active, chronic, and microscopic colitis. Negative for dysplasia and malignancy. . C. TERMINAL ILEUM, BIOPSY: Ileal mucosa with no diagnostic abnormality. Negative for active inflammation, granulomas, dysplasia or malignancy. . . . . . . . MRV 10/03/2023 1322 Local . 01 Electronically signed: . Milind Melendez MD, PhD, Pathologist NPI- [id number] . 01 Gross description: . Part A: RIGHT COLON BIOPSIES: Received in formalin are 3 fragment(s) of hernandes, soft tissue measuring 0.2 x 0.2 x 0.2 cm to 0.4 x 0.3 x 0.2 cm submitted entirely in 1 cassette(s) Part B: LEFT COLON BIOPSIES: Received in formalin are 2 fragment(s) of hernandes, soft tissue measuring 0.2 x 0.2 x 0.2 cm to 0.3 x 0.2 x 0.2 cm submitted entirely in 1 cassette(s) Part C: TI BIOPSY: Received in formalin is 1 fragment(s) of hernandes, soft tissue measuring 0.3 x 0.2 x 0.2 cm submitted entirely in 1 cassette(s) /ANNI 10/03/2023 0113 Local . 01 Pathologist provided ICD-10: Z12.11, R19.4 . 01 CPT . 978600, 922936, 041175 Specimen Comment: A courtesy copy of this report has been sent to [phone] Performed at: 01 [facility] [address] [place] [id number] MD Sunil Hammond MD Phone: [phone]
[2023-10-01] MEDS: LACTATED RINGERS 1,000 ML 42 ML IV (12:42)
[2023-10-01 12:49] VITALS: BP 144/93; PULSE 97; RESP 16; TEMP 36.1; O2SAT 97
--- NOTE | 2023-10-01 13:06 | PM.HP.1 ---
History of Present Illness History of Present Illness Date Patient Seen: 10/01/23 Time Patient Seen: 13:06 Chief complaint: Colonoscopy Narrative: Yarely is a 48-year-old woman who is here for a screening colonoscopy. She has no first-degree relatives with colon cancer. She has had diarrhea multiple times a day for the past several years with no obvious explanation. [facility] Medical History Abnormal Pap smear of cervix (1993) Acne Ankle pain (2014) Chicken pox Chronic back pain (2008) Depression (2008) Epigastric pain determined by examination Foot pain (2014) Hayfever (1999) Hemorrhoids (2008) History of heavy periods (1987) HPV (human papilloma virus) infection (1998) Hypothyroidism (2001) IBS (irritable bowel syndrome) (1999) Migraines (1989) Nausea & vomiting Ovarian cyst (1999) Painful menstrual periods (1987) Plantar warts Right upper quadrant pain Shoulder pain (2005) Tubal , rupture of (03/18/10) Urinary incontinence (2013) Surgical History Anesthesia complication History of hysterosalpingogram (01/11/13) History of loop electrical excision procedure (LEEP) (1999) History of shoulder surgery (2006) History of shoulder surgery (2007) History of shoulder surgery (2008) History of unilateral salpingectomy (03/18/10) Status post dilation and curettage (03/20/12) Status post tubal ligation (01/10/14) Status post vaginal hysterectomy (10/23/15) Family History Brother Age: 41 Diverticulitis PTSD (post-traumatic stress disorder) Father Age: 71 Hypertension High cholesterol Grandfather Hypertension Heart attack Diabetes mellitus Mother Age: 69 Diverticulitis Breast lump Diabetes mellitus Grandfather Stroke Dementia Parkinson's disease Grandmother Kidney failure Diabetes mellitus Grandmother No problems noted. Sister Breast lump Diabetes mellitus Sister No problems noted. Social History marital status: Smoking Status: Never smoker alcohol intake: current substance use type: does not use Meds Home Medications and Allergies Home Medications Medication Instructions Recorded Confirmed Type sumatriptan succinate 100 mg 100 mg PO .COMPLEX migraine 12/10/21 10/01/23 Rx tablet (Imitrex) headache #42 tabs levothyroxine 125 mcg tablet 125 mcg PO QDAY #90 tabs 02/17/23 10/01/23 Rx Allergies Allergy/AdvReac Type Severity Reaction Status Date / Time adhesive [ADHESIVE] Allergy Mild local rash Verified 10/01/23 12:47 hydrocodone [HYDROCODONE] Allergy Mild itching Verified 10/01/23 12:47 oxycodone [OXYCODONE] Allergy Mild itching Verified 10/01/23 12:47 Exam Vital Signs (past 8 hours): - 10/01/23 12:49 Temperature 97 F L Pulse Rate 97 H Respiratory Rate 16 Blood Pressure 144/93 H Pulse Oximetry 97 Oxygen Delivery Method Room Air Oxygen Delivery Method Room Air Const General: No acute distress Nutritional Appearance: obese Orientation: alert and awake Resp Effort & Inspection: normal respiratory effort Assessment & Plan Assessment and plan (1) Colon cancer screening: Status: Acute Plan We reviewed the risks and benefits of colonoscopy for colon cancer screening. I will also perform random biopsies of any irritated or inflamed segments of colon. She would like to proceed.
--- NOTE | 2023-10-01 13:54 | PM.OP.COLON ---
Operative Date/Time/Diagnoses Date of procedure: 10/01/23 Time of procedure: 13:54 Pre-op diagnosis: Colon cancer screening and chronic diarrhea Post-op diagnosis: same Procedure & Clinicians Study performed: Colonoscopy Same procedure as scheduled: Yes Surgeon: Allen Castaneda Procedure Notes Procedure in detail: Surgeon: Allen Castaneda MD Anesthesia: Kylee Simmons CRNA Procedure: The patient was brought to the endoscopy suite, placed in left lateral decubitus position. The patient was connected to monitoring devices. A time-out was performed. Sedation was administered. Once the patient was adequately sedated, a digital rectal exam was performed and was normal. The scope was then inserted and advanced to the cecum where the appendiceal orifice was identified and photographed. The terminal ileum was intubated and no abnormalities were seen. Random biopsies were taken from the terminal ileum with a Jumbo forceps. The scope was then slowly withdrawn over greater than 6 minutes. The mucosa was thoroughly inspected. No abnormalities were seen. Random biopsies were taken from the right colon with Jumbo forceps. One of the biopsy sites was bleeding steadily and so two hemoclips were applied to the biopsy wound with good effect. More random biopsies were taken from the left colon with the Jumbo forceps. The scope was retroflexed in the rectum. No other abnormalities were seen. The scope was straightened and removed. The patient was awakened and brought to recovery. Scope withdrawal time: 17 minutes Sedation time: 25 minutes EBL: 10 mL Findings: No gross abnormalities Post-procedure Recommendations: Colonoscopy in 10 years Disposition: PACU
[2023-10-01 13:55] VITALS: BP 137/86; PULSE 97; RESP 18; TEMP 36.9; O2SAT 96
[2023-10-01 14:00] VITALS: BP 126/89; PULSE 89; RESP 19; O2SAT 97
[2023-10-01 14:08] VITALS: BP 124/92; PULSE 81; RESP 19; O2SAT 98
[2023-10-01 14:15] VITALS: BP 135/89; PULSE 83; RESP 20; O2SAT 99
== END 2023-10-01 14:55 | disposition home or self-care (01) ==
PROVIDERS: PCP Family Medicine; Referring Provider Surgery; Visit Provider Surgery
PROC: 0DJD8ZZ Inspection of Lower Intestinal Tract, Via Natural or Artificial Opening Endoscopic (ICD-10-PCS; CPT 45378; principal; 2023-10-01 13:15)
DX: R19.7 Diarrhea, unspecified (principal)
CPT/HCPCS: 45380; J2704

== ENCOUNTER → 2023-10-31 08:41 | Outpatient (CLI) | payer OTHER, SELFPAY ==
--- NOTE | 2023-10-31 08:42 | DI.MG.S_ITS ---
BILATERAL DIGITAL SCREENING MAMMOGRAM 3D/2D WITH CAD: 10/31/2023 CLINICAL: Routine screening. Family history of breast cancer. Comparison is made to exams dated: 02/16/2022 mammogram, 07/19/2020 mammogram, and 06/02/2019 [facility] [place]. There are scattered areas of fibroglandular density in both breasts (category b / 25%-50% glandular tissue). Current study was also evaluated with a Computer Aided Detection (CAD) system. There is a possible developing new oval asymmetry in the right breast at 1 o'clock middle depth. There also is a possible irregular asymmetry with an indistinct margin in the right breast at 5 o'clock posterior depth. There is architectural distortion associated with the asymmetry. No other significant masses, calcifications, or other findings are seen in either breast. IMPRESSION: INCOMPLETE: NEEDS ADDITIONAL IMAGING EVALUATION The possible developing new oval asymmetry in the right breast at 1 o'clock middle depth resembles a lymph node and is indeterminate. Additional views with possible ultrasound are recommended. The possible irregular asymmetry in the right breast at 5 o'clock posterior depth is indeterminate. Additional views with possible ultrasound are recommended. Based on the Tyrer Cuzick model (a risk assessment model) the patient's lifetime risk is 9.6% and her 10 year risk is 1.8%. According to the ACR, ACS, and NCCN guidelines, an annual breast MRI exam along with mammogram is recommended if the patient's lifetime risk is 20% or greater. This exam was interpreted at Station ID: [id number]. NOTE: For mammograms, a report in lay terms will be sent to the patient. Approximately 15% of breast malignancies will not be visualized mammographically. In the management of a palpable breast mass, a negative mammogram must not discourage biopsy of a clinically suspicious lesion. Electronically Signed By: Savanah pepper/agustin:10/31/2023 17:16:40 letter sent: Additional Imaging Needed ACR BI-RADS Category 0: Incomplete 3340F
== END ==
PROVIDERS: PCP Family Medicine; Referring Provider Family Medicine; Visit Provider Family Medicine
DX: Z12.31 Encounter for screening mammogram for malignant neoplasm of breast (principal); Z80.3 Family history of malignant neoplasm of breast; R92.323 Mammographic fibroglandular density, bilateral breasts
CPT/HCPCS: 77063; 77067

== ENCOUNTER → 2023-11-25 08:47 | Outpatient (CLI) | payer OTHER, SELFPAY ==
--- NOTE | 2023-11-25 08:48 | DI.MG.S_ITS ---
UNILATERAL RIGHT DIGITAL DIAGNOSTIC MAMMOGRAM 3D/2D WITH ADDITIONAL VIEWS: 11/25/2023 CLINICAL: Additional evaluation requested from prior study. Comparison is made to exams dated: 10/31/2023 mammogram, 02/16/2022 mammogram, and 07/19/2020 mammogram - [facility]. There are scattered areas of fibroglandular density in the right breast (category b / 25%-50% glandular tissue). There is an oval asymmetry in the right breast at 1 o'clock middle depth. There also is a possible asymmetry in the right breast at 5 o'clock posterior depth. This is less prominent. No other significant masses or calcifications are seen in the breast. IMPRESSION: INCOMPLETE: NEEDS ADDITIONAL IMAGING EVALUATION The oval asymmetry in the right breast at 1 o'clock middle depth resembles a lymph node and is indeterminate. The possible asymmetry in the right breast at 5 o'clock posterior depth is indeterminate. A targeted ultrasound is recommended and will immediately follow. Based on the Tyrer Cuzick model (a risk assessment model) the patient's lifetime risk is 9.6% and her 10 year risk is 1.8%. According to the ACR, ACS, and NCCN guidelines, an annual breast MRI exam along with mammogram is recommended if the patient's lifetime risk is 20% or greater. This exam was interpreted at Station ID: [id number]. NOTE: For mammograms, a report in lay terms will be sent to the patient. Approximately 15% of breast malignancies will not be visualized mammographically. In the management of a palpable breast mass, a negative mammogram must not discourage biopsy of a clinically suspicious lesion. Electronically Signed By: Kareem Bonilla M.D. slc/:11/25/2023 09:47:32 ACR BI-RADS Category 0: Incomplete 3340F
--- NOTE | 2023-11-25 08:48 | DI.US.S_ITS ---
LIMITED ULTRASOUND OF RIGHT BREAST: 11/25/2023 CLINICAL: Patient returns today to evaluate 2 focal asymmetries in the right breast. Comparison is made to exams dated: 11/25/2023 mammogram, 10/31/2023 mammogram, 02/16/2022 mammogram, and 07/19/2020 mammogram - [facility]. Color flow and real-time ultrasound of the right breast 1 o'clock and 5 o'clock regions were performed. Raymond scale images of the real-time examination were reviewed. There is a 0.8 cm x 0.6 cm x 0.4 cm cluster of oval cysts with a septated internal wall in the right breast at 2 o'clock middle depth 8 cm from the nipple. This cluster of oval cysts is hypoechoic with posterior acoustic enhancement. This correlates with mammography findings. Color flow imaging demonstrates that there is no vascularity present. There also is a benign area of fibroglandular tissue in the right breast at 5 o'clock posterior depth. No mass or cyst. IMPRESSION: PROBABLY BENIGN The 0.8 cm cluster of oval cysts in the right breast at 2 o'clock middle depth is probably benign. A follow-up mammogram and an ultrasound in 6 months is recommended to demonstrate stability. No mass or cyst in the right breast at 5 o'clock posterior depth. Exam findings were discussed with the patient. This exam was interpreted at Station ID: [id number]. Electronically Signed By: Kareem Bonilla M.D. slc/:11/25/2023 09:51:31 letter sent: Followup Recommended Ultrasound BI-RADS: 3 Probably benign
== END ==
PROVIDERS: PCP Family Medicine; Referring Provider Physician Assistant; Visit Provider Physician Assistant
DX: R92.8 Other abnormal and inconclusive findings on diagnostic imaging of breast (principal); R92.321 Mammographic fibroglandular density, right breast; N60.01 Solitary cyst of right breast
CPT/HCPCS: 76642; 77065; G0279

== ENCOUNTER → 2024-10-11 12:07 | Outpatient (CLI) | payer OTHER, SELFPAY ==
--- NOTE | 2024-10-11 12:09 | DI.MG.S_ITS ---
US breast RT limited, MM diagnostic mammo BI: 10/11/2024 BI-RADS: 3 CLINICAL: 49-year old female for bilateral diagnostic mammogram and right diagnostic breast ultrasound. Patient presents for short interval follow up of the right breast. Tyrer-Cuzick lifetime risk of 10.3%. No personal or first-degree family history of breast cancer. Current reported family history of breast cancer: daughter of uncle. PRIOR EXAMS 11/25/2023, 10/31/2023, 02/16/2022, 07/19/2020, 06/02/2019, 04/24/2018, 03/28/2017. MAMMOGRAPHY TECHNIQUE: 2D and 3D (tomosynthesis) digital mammographic views obtained, with additional images as needed for full coverage. Current study was also evaluated with a Computer Aided Detection (CAD) system. ULTRASOUND TECHNIQUE Real-time monk scale and color doppler imaging of the area of clinical interest was performed with image documentation. TARGETED Right Breast Ultrasound: Real-time ultrasound exam was performed focused to area of clinical and/or imaging concern. DENSITY B. There are scattered areas of fibroglandular density. MAMMOGRAPHY FINDINGS Right (finding-1): Upper Inner at 2:00, Middle depth, measuring 0.7 cm: There is a stable focal asymmetry present. Left: No suspicious mass, asymmetry, microcalcification, or other abnormality seen. ULTRASOUND FINDINGS Right (finding-1): Upper Inner at 2:00, 8 cm from nipple, measuring 0.8 x 0.9 x 0.5 cm, previously measuring 0.7 x 0.8 x 0.4 cm: Correlating with findings on mammogram there is a cluster of microcysts present. (This finding was previously labeled as 1:00, 8 cm from the nipple on ultrasound images). IMPRESSION: Right: Upper Inner at 2:00, 8 cm from nipple, measuring 0.8 x 0.9 x 0.5 cm, previously measuring 0.7 x 0.8 x 0.4 cm * Probably Benign. Left * No mammographic evidence of malignancy. RECOMMENDATIONS Right: Upper Inner at 2:00, 8 cm from nipple * Six month followup with diagnostic ultrasound and diagnostic mammography. Left * Annual screening mammography in one year. OVERALL ASSESSMENT CATEGORY BI-RADS-3: Probably Benign. ELECTRONICALLY SIGNED: Blossom Miller M.D. on 10/12/2024 at 01:11:51 PM PT Interpreting Station ID: [id number]
== END ==
PROVIDERS: PCP Family Medicine; Referring Provider Physician Assistant; Visit Provider Physician Assistant
DX: R92.8 Other abnormal and inconclusive findings on diagnostic imaging of breast (principal); N60.01 Solitary cyst of right breast; Z80.3 Family history of malignant neoplasm of breast
CPT/HCPCS: 76642; 77066; G0279

== ENCOUNTER 2025-04-12 15:03 | Outpatient (CLI) | payer OTHER, SELFPAY ==
[2025-04-12] VITALS (9 sets, daily range): BP systolic 99–119; BP diastolic 59–91; PULSE 78–91; RESP 16–21; TEMP 36.1; O2SAT 98–100
[2025-04-12] MEDS: MIDAZOLAM 2 MG/2 ML VIAL IV (16:18)
--- NOTE | 2025-04-12 16:45 | P.PCN_ITS ---
Date/Time/Diagnoses Date of procedure: 04/12/25 Time of procedure: 16:45 Pre-procedure diagnosis: 1. FACET ARTHROPATHY Post-procedure diagnosis: same Procedure Notes Procedure: 1. BILATERAL- L4, L5 and S1 DIAGNOSTIC MB BLOCKS with LA Anesthetic Indications: Yarely is referred by Dr. Yao for treatment of Bilateral Axial LBP. Physician: Jones Smart Total Fluoroscopy time (seconds): 14 Total sedation minutes: 21 Complications: none Procedure in detail & Post-procedure care: DESCRIPTION OF PROCEDURE Fluoroscopically guided, contrast-controlled bilateral L4, L5 and S1 medial branch blocks with 0.5cc of 0.5% Marcaine. Following review of allergy and review of potential side effects and complications, including, but not necessarily limited to, infection, allergic reaction, local tissue breakdown, nerve injury, paralysis, stroke and possible , the patient indicated that the patient understood and agreed to proceed. An informed consent document was signed by the patient, witnessed by a nurse, and placed in the patient's chart. After review of previous anaesthesic history and IV conscious sedation the patient was deemed safe to proceed with today's procedure with IV conscious sedation as ASA class II designation. Safety time-out was performed to confirm patient ID, procedure to be performed and site of procedure. IV sedation was accomplished with a combination of 2mg of Versed was administered by the RN after DO order, titrated to patient comfort during the course of the procedure while the patient remained responsive to all verbal commands In the prone position, following sterile prep and drape of the lumbar region, the right L4, L5 and S1 anatomical location of the medial branch of the dorsal ramus was identified fluoroscopically. Subsequently an anesthetic skin wheal using 1% lidocaine solution was initiated at each of the anatomical spots. Subsequently then a 22-gauge 3.5-inch spinal needle was atraumatically introduced and advanced under fluoroscopic guidance at each of the corresponding sites at the right L4, L5 and S1 MB. After negative aspiration, 0.2cc of Isovue 200 was injected, confirming placement without vascular or intrathecal uptake. Subsequently then 0.5cc of 0.5% Marcaine solution was injected at each of the corresponding sites at the right L4, L5 and S1 medial branch locations. The identical procedure was replicated on the left. The patient tolerated the procedure well without signs or symptoms of complications prior to transfer to the recovery area continued monitoring without incident. Post-procedure, the patient was monitored initiating provocative activities to measure the amount of relief from block of the facetogenic pain. The patient reported a VAS of 7 prior to the procedure and a post-procedure VAS of 1. It has been a pleasure to assist in the diagnostic and therapeutic care of your patient. POST OP INSTRUCTIONS The patient was provided with a Pain Log to complete over the next several hours and subsequent days prior to the patient's follow up with the ordering physician. If the patient has regional trainer relief to the solution applied, then they may be a candidate for medial branch rhizotomy. The patient is aware, was provided, once again, with a Pain Log and will follow up with the referring physician for review and clinical correlation
== END 2025-04-12 16:55 | disposition home or self-care (01) ==
LOC: RAD 15:03
PROVIDERS: PCP Family Medicine; Referring Provider Family Medicine; Visit Provider Physical Medicine & Rehabilitation
DX: M47.816 Spondylosis without myelopathy or radiculopathy, lumbar region (principal); M47.817 Spondylosis without myelopathy or radiculopathy, lumbosacral region
CPT/HCPCS: 64493; 64494; 99152; J2250

== ENCOUNTER 2025-05-24 15:04 | Outpatient (CLI) | payer OTHER, SELFPAY ==
[2025-05-24] VITALS (10 sets, daily range): BP systolic 102–112; BP diastolic 71–80; PULSE 77–93; RESP 16–20; TEMP 36.6; O2SAT 98–100
[2025-05-24] MEDS: MIDAZOLAM 2 MG/2 ML VIAL IV (16:45)
[2025-05-24] MEDS: LIDOCAINE 2% INJ MDV 20ML 5 ML INJ (16:49)
[2025-05-24] MEDS: LIDOCAINE 1% 20 ML 5 ML INJ (16:49)
--- NOTE | 2025-05-24 17:09 | P.PCN_ITS ---
Date/Time/Diagnoses Date of procedure: 05/24/25 Time of procedure: 17:10 Pre-procedure diagnosis: 1. FACET ARTHROPATHY Post-procedure diagnosis: same Procedure Notes Procedure: 1. BILATERAL- L4, L5 and S1 DIAGNOSTIC MB BLOCKS with SA Anesthetic Indications: Yarely is referred by Dr. Yao for treatment of Bilateral Axial LBP. Physician: Jones Smart Total Fluoroscopy time (seconds): 12 Total sedation minutes: 16 Complications: none Procedure in detail & Post-procedure care: DESCRIPTION OF PROCEDURE Fluoroscopically guided, contrast-controlled bilateral L4, L5 and S1 medial branch blocks with 0.5cc of 2% Lidocaine. Following review of allergy and review of potential side effects and complications, including, but not necessarily limited to, infection, allergic reaction, local tissue breakdown, nerve injury, paralysis, stroke and possible , the patient indicated that the patient understood and agreed to proceed. An informed consent document was signed by the patient, witnessed by a nurse, and placed in the patient's chart. After review of previous anaesthesic history and IV conscious sedation the patient was deemed safe to proceed with today's procedure with IV conscious sedation as ASA class II designation. Safety time-out was performed to confirm patient ID, procedure to be performed and site of procedure. IV sedation was accomplished with a combination of 2mg of Versed was administered by the RN after DO order, titrated to patient comfort during the course of the procedure while the patient remained responsive to all verbal commands In the prone position, following sterile prep and drape of the lumbar region, the right L4, L5 and S1 anatomical location of the medial branch of the dorsal ramus was identified fluoroscopically. Subsequently an anesthetic skin wheal u sing 1% lidocaine solution was initiated at each of the anatomical spots. Subsequently then a 22-gauge 3.5-inch spinal needle was atraumatically introduced and advanced under fluoroscopic guidance at each of the corresponding sites at the right L4, L5 and S1 MB. After negative aspiration, 0.2cc of Isovue 200 was injected, confirming placement without vascular or intrathecal uptake. Subsequently then 0.5cc of 2% Lidocaine solution was injected at each of the corresponding sites at the right L4, L5 and S1 medial branch locations. The identical procedure was replicated on the left. The patient tolerated the procedure well without signs or symptoms of complications prior to transfer to the recovery area continued monitoring without incident. Post-procedure, the patient was monitored initiating provocative activities to measure the amount of relief from block of the facetogenic pain. The patient reported a VAS of 7 prior to the procedure and a post-procedure VAS of 1. It has been a pleasure to assist in the diagnostic and therapeutic care of your patient. POST OP INSTRUCTIONS The patient was provided with a Pain Log to complete over the next several hours and subsequent days prior to the patient's follow up with the ordering physician. If the patient has conductor symphonic orchestra relief to the solution applied, then they may be a candidate for medial branch rhizotomy. The patient is aware, was provided, once again, with a Pain Log and will follow up with the referring physician for review and clinical correlation
== END 2025-05-24 18:17 | disposition home or self-care (01) ==
LOC: RAD 15:04
PROVIDERS: PCP Family Medicine; Referring Provider Physical Medicine & Rehabilitation; Visit Provider Physical Medicine & Rehabilitation
DX: M47.816 Spondylosis without myelopathy or radiculopathy, lumbar region (principal); M47.817 Spondylosis without myelopathy or radiculopathy, lumbosacral region
CPT/HCPCS: 64493; 64494; 99152; J2250